=== PATIENT | male | born 1975 | race Two or more races ===

== ENCOUNTER → 2016-07-22 | Outpatient (REF) | payer BC | LOC: M SMT 08:30 | PROVIDERS: ATTEND Urology | DX: Z30.2 Encounter for sterilization (principal) ==

== ENCOUNTER → 2016-09-26 | Outpatient (REF) | payer BC ==
[2016-09-26 09:13] LABS: IMMMOTILE SPERM CENTRIFUGED ABSENT (ABSENT); IMMOTILE SPERM ABSENT (ABSENT); MOTILE SPERM ABSENT (ABSENT); MOTILE SPERM CENTRIFUGED ABSENT (ABSENT)
== END ==
LOC: M SMT 08:54
PROVIDERS: ATTEND Urology
DX: Z30.2 Encounter for sterilization (principal)

== ENCOUNTER → 2017-11-28 | Outpatient (REF) | payer BC ==
[2017-11-28 14:04] LABS: C REACTIVE PROTEIN QUANTITATIV 0.34 MG/DL (0.00-0.30)
[2017-11-28 14:04] LABS: RHEUMATOID FACTOR QUANT < 10.0 IU/ML (<15.0)
[2017-12-02 00:08] LABS: ANTINUCLEAR ANTIBODIES DIRECT Negative (Negative)
== END ==
LOC: M LAB REF 13:31
DX: M15.9 Polyosteoarthritis, unspecified (principal)
CPT/HCPCS: 86140

== ENCOUNTER 2018-01-02 16:32 | Emergency (ER) | payer OTHER, BC ==
[2018-01-02] MEDS: LIDOCAINE 2% MDV 20 ML VIAL SC ×2 (17:45)
[2018-01-02] MEDS: ADACEL/BOOSTRIX VACCINE (DIPHTH/PERTUSS/ACELL/TETANUS)0.5ML SYR (90715) IM (17:54)
== END 2018-01-02 18:17 | disposition home or self-care (01) ==
LOC: M ED 16:32
DX: S61.012A Laceration without foreign body of left thumb without damage to nail, initial encounter (principal); W26.8XXA Contact with other sharp object(s), not elsewhere classified, initial encounter; Y92.89 Other specified places as the place of occurrence of the external cause; Y99.0 Civilian activity done for income or pay; F17.220 Nicotine dependence, chewing tobacco, uncomplicated; Z88.1 Allergy status to other antibiotic agents
CPT/HCPCS: 90715

== ENCOUNTER → 2018-05-22 | Outpatient (CLI) | payer BC ==
--- NOTE | 2018-05-26 18:41 | SLEEPHOME ---
DATE OF PROCEDURE: 05/22/2018 ORDERED BY: Mami Jin Diagnostic home sleep testing was performed for evaluation of the obstructive sleep apnea syndrome in this patient with a history of snoring and excessive somnolence. For testing, a nocturnal T3 respiratory monitoring device was used. Continuous record was made of pulse, oxygen saturation, airflow, chest, abdominal strain and body position. 10 hours and 59 minutes of data were reviewed. There were 7 hours and 32 minutes marked as time in bed. During the interval marked time in bed, there were 76 respiratory events identified of 10 seconds in duration or greater for a respiratory event index of 10.1. The events were primarily obstructive. Baseline pulse rate 71 beats per minute. Pulse rate ranged from 51-191. Baseline saturation 93.5%. Saturations fell as low as 69%. Testing was performed in both the supine and nonsupine positions. IMPRESSION: Abnormal home sleep testing with repetitive respiratory events and oxygen desaturation to 69% with a respiratory event index of 10.1 is consistent with the obstructive sleep apnea syndrome. RECOMMENDATIONS: The patient should be referred for formal sleep evaluation and in laboratory pressure titration.
== END ==
LOC: M SLEEP HO 13:31
PROVIDERS: ATTEND Nurse Practitioner Family
DX: G47.33 Obstructive sleep apnea (adult) (pediatric) (principal)

== ENCOUNTER → 2018-07-06 | Outpatient (CLI) | payer BC ==
--- NOTE | 2018-07-09 21:14 | SLEEPCENT ---
DATE OF PROCEDURE: 07/06/2018 ORDERED BY: Mami Jin Nocturnal polysomnography was performed for the titration of pressure therapy in this patient with obstructive sleep apnea syndrome based on clinical criteria, confirmed by home testing revealing a respiratory event index of 10.1. For testing a ResMed AirFit F20 full face mask of large size was used, 4 cm of water pressure were applied to the circuit and the lights were extinguished. 7 hours and 29 minutes of data were reviewed. There were 393 minutes of sleep identified. Sleep latency was normal at 11 minutes but rapid eye movement (REM) latency was delayed at 154 minutes. Sleep architecture was good with three REM cycles noted. Overall sleep efficiency was 88.9%. The electrocardiogram showed a sinus rhythm with an average heart rate of 60 beats per minute. EEG showed normal waveforms for awake and sleep. Respiratory events were fully palliated with continuous positive airway pressure (CPAP) at a pressure of +8 and remaining measures of sleep physiology in normal. IMPRESSION: Obstructive sleep apnea syndrome (G47.33). RECOMMENDATIONS: Nightly use of pressure therapy 8 cm of water.
== END ==
LOC: M SLEEP 19:50
PROVIDERS: ATTEND Nurse Practitioner Family
DX: G47.33 Obstructive sleep apnea (adult) (pediatric) (principal)

== ENCOUNTER → 2022-01-08 | Outpatient (CLI) | payer BC | LOC: M RAD 16:33 | PROVIDERS: ATTEND Surgery | DX: D48.5 Neoplasm of uncertain behavior of skin (principal) ==

== ENCOUNTER → 2022-07-09 | Outpatient (CLI) | payer BC ==
[2022-07-09 08:17] LABS: BLOOD UREA NITROGEN 20 MG/DL (9-23); CREATININE FOR GFR 0.94 MG/DL (0.70-1.30); GLOMERULAR FILTRATION RATE > 60.0 (>60)
== END ==
LOC: M LAB 07:10
PROVIDERS: ATTEND Surgery
DX: E11.9 Type 2 diabetes mellitus without complications (principal); D48.1 Neoplasm of uncertain behavior of connective and other soft tissue

== ENCOUNTER → 2022-07-12 | Outpatient (CLI) | payer BC | LOC: M PLARAD 07:46 | PROVIDERS: ATTEND Surgery | DX: M25.461 Effusion, right knee (principal); M17.11 Unilateral primary osteoarthritis, right knee; M71.21 Synovial cyst of popliteal space [Baker], right knee ==

== ENCOUNTER 2025-02-17 08:31 | Day surgery (SDC) | payer BC ==
[~2025-02-17] VITALS: Ht 188 cm; Wt 133.2 kg
[~2025-02-17 08:31] MED LIST: METF500T13 PO; THERTAB52 PO
[2025-02-17 09:16] VITALS: TEMP 98.5
[2025-02-17 09:30] VITALS: BP 119/64; O2SAT 95
== END 2025-02-17 09:55 | disposition home or self-care (01) ==
LOC: M OPP 08:31
PROVIDERS: ATTEND Surgery
DX: Z12.11 Encounter for screening for malignant neoplasm of colon (principal); K64.0 First degree hemorrhoids; G47.30 Sleep apnea, unspecified; J45.909 Unspecified asthma, uncomplicated; Z88.8 Allergy status to other drugs, medicaments and biological substances; Z79.84 Long term (current) use of oral hypoglycemic drugs; Z79.899 Other long term (current) drug therapy